=== PATIENT | female | born 1990 ===

== ENCOUNTER 2021-09-15 21:20 | Inpatient (IN) | payer OTHER ==
[2021-09-15 23:02] LABS: HEMOGLOBIN 11.3 GM/dL (10.7-15.3); MCH 29.2 pg (25.7-33.7); MCHC 33.2 g/dl (32.0-36.0); MEAN CELL VOLUME 87.8 fl (80-96); MEAN PLT VOLUME 10.5 fl (7.5-11.1); PLATELET COUNT 170 10^3/uL (134-434); RBC 3.87 M/mm3 (3.60-5.2); RDW 13.5 % (11.6-15.6); WHITE BLOOD COUNT 5.9 K/mm3 (4.0-10.0)
[2021-09-15 23:11] LABS: INR 0.9 (0.83-1.09); PROTHROMBIN TIME (PATIENT) 10.5 SEC (9.7-13.0)
[2021-09-15 23:12] LABS: EPI CELLS 12 /uL (0-25.1); HYALINE CASTS 1 /uL (0-3.1); PH,URINE 6.5 (5.0-8.0); URINE APPEARANCE CLEAR; URINE BACTERIA 731 /uL (0-1359); URINE BILIRUBIN NEGATIVE (NEGATIVE); URINE COLOR YELLOW; URINE GLUCOSE (UA) NEGATIVE (NEGATIVE); URINE KETONE NEGATIVE (NEGATIVE); URINE LEUK ESTERASE TRACE (NEGATIVE); URINE NITRITE NEGATIVE (NEGATIVE); URINE PROTEIN NEGATIVE (NEGATIVE); URINE RBC 2 /uL (0-23.9); URINE UROBILINOGEN 0.2 mg/dL (0.2-1.0); URINE WBC 36 /uL (0-25.8)
[2021-09-15 23:15] LABS: ACTIVATED PTT 27.2 SECONDS (25.2-36.5)
[2021-09-15] MEDS ORDERED: hydrALAZINE HCL 20 MG/ML VIAL ONE (23:19)
[2021-09-15] MEDS ORDERED: hydrALAZINE HCL 20 MG/ML VIAL IVPUSH ONE (23:25)
[2021-09-15 23:29] LABS: CALCIUM 8.8 mg/dL (8.5-10.1)
[2021-09-15 23:30] LABS: ALBUMIN 2.6 g/dl (3.4-5.0); BLOOD UREA NITROGEN 16.3 mg/dL (7-18)
[2021-09-15 23:33] LABS: CREATININE 0.9 mg/dL (0.55-1.3)
[2021-09-15 23:34] LABS: BILIRUBIN,TOTAL 0.2 mg/dL (0.2-1)
[2021-09-15] MEDS ORDERED: MAGNESIUM SULFATE 20GM/500ML - 20 GM/500 ML INFUS.BAG ONE (23:34)
[2021-09-15 23:35] LABS: TOT PROT 6.2 g/dl (6.4-8.2)
[2021-09-15] MEDS ORDERED: MAGNESIUM 4GM/H20 - 4 GM/100 ML IVPB IVPB SCH (23:40)
[2021-09-16] MEDS ORDERED: BETAMET ACET/BETAMET NA PH 30 MG/5 ML VIAL ONE (00:08)
[2021-09-16] MEDS ORDERED: MAGNESIUM SULFATE 20GM/500ML - 20 GM/500 ML INFUS.BAG IV SCH (00:10)
[2021-09-16] MEDS ORDERED: ELECTROLYTE-148 SOLN 1,000 ML IV SCH (00:15)
[2021-09-16] MEDS ORDERED: BETAMET ACET/BETAMET NA PH 30 MG/5 ML VIAL IM SCH (00:15)
[2021-09-16] MEDS ORDERED: LABETALOL HCL 200 MG TABLET (FP) PO ONE (01:09)
[2021-09-16 02:30] VITALS: BMI 29.0
[2021-09-16 04:27] VITALS: BP 143/86; PULSE 71; TEMP 98.2
== END 2021-09-16 04:35 | disposition short-term general hospital (02) | DRG 833 ==
LOC: JDEL 21:20 → JLDR 23:00
PROVIDERS: ADMIT Obstetrics & Gynecology; ATTEND Obstetrics & Gynecology
DX: O14.13 Severe pre-eclampsia, third trimester (principal); Z3A.30 30 weeks gestation of pregnancy
CPT/HCPCS: 36415; 80053; 81003; 84550; 85027; 85384; 85610; 85730; 86850; 86900; 86901; 96372; C9803; U0003; U0005